=== PATIENT | female | born 1990 | race Hispanic/Latino ===

== ENCOUNTER 2016-12-24 09:49 | Outpatient (CLI) | payer OTHER ==
--- NOTE | 2016-12-24 14:23 | ULT ---
OB ULTRASOUND: History: Size and dates. FINDINGS: Single viable intrauterine . Gestational age by ultrasound is 22 weeks 6 days. Biometry measurements are consistent as below: BPD 23 weeks 2 days HC 23 weeks 1 day AC 23 weeks 1 day FL 23 weeks 0 day EFW: 561 grams Presentation: Breach. Placenta: Anterior. heart rate: 136 bpm. anatomy: A four chamber heart is identified. There is suggestion of a small pericardial effusion. Intracranial contests, stomach, kidneys, cord insertion, bladder, spine, face, three vessel cord and extremities appear unremarkable. IMPRESSION: 1. 22 weeks 6 day gestation by ultrasound. 2. Question small pericardial effusion. Recommend patient be referred for high level OB ultrasound t o further assess this finding. POS: VIDHYA
== END 2016-12-24 09:50 | disposition home or self-care (01) ==
LOC: NAV ULT 09:49
PROVIDERS: ATTEND Family Medicine
DX: O09.292 Supervision of pregnancy with other poor reproductive or obstetric history, second trimester (principal); Z3A.22 22 weeks gestation of pregnancy
CPT/HCPCS: 76805